=== PATIENT | female | born 1995 | race African-American/Black ===

== ENCOUNTER 2017-12-01 09:09 | Emergency (ER) | payer MEDICAID ==
[~2017-12-01] VITALS: Ht 180.3 cm; Wt 73.0 kg
[2017-12-01 09:56] LABS: CLARITY URINE CLEAR (CLEAR); COLOR URINE YELLOW (YELLOW); KETONES URINE NEGATIVE (NEGATIVE); LEUKOCYTE ESTERASE URINE NEGATIVE (NEGATIVE); NITRITE URINE NEGATIVE (NEGATIVE); OCCULT BLOOD URINE NEGATIVE (NEGATIVE); PH URINE >=9.0 (4.5-8.0); PROTEIN URINE NEGATIVE (NEGATIVE); SPECIFIC GRAVITY URINE 1.008 (1.005-1.030); UROBILINOGEN URINE 0.2 E.U./dL (0.2-1.0)
[2017-12-01] MEDS ORDERED: SODIUM CHLORIDE 0.9% 1,000 ML IV ONE (10:05)
[2017-12-01 10:12] LABS: BASOPHILS % 0.4 % (0.0-2.0); EOSINOPHILS % 2.3 % (0.0-5.0); HEMATOCRIT. 30.1 % (36.0-48.0); LYMPHOCYTES % 23.6 % (20.0-50.0); MEAN CORPUSCULAR HEMOGLOBIN 29.4 pg (28.0-32.0); MEAN CORPUSCULAR VOLUME 88.2 fL (81.0-99.0); MEAN PLATELET VOLUME 8.5 fl (7.4-10.4); MONOCYTES % 5.5 % (2.0-8.0); NEUTROPHILS % 68.2 % (40.0-76.0); PLATELET 199 x1000/uL (130-400); RED BLOOD CELL COUNT 3.41 mill/uL (4.2-5.4)
[2017-12-01 10:35] LABS: CARBON DIOXIDE 25 mEq/L (21-32)
[2017-12-01] MEDS ORDERED: ACETAMINOPHEN 325MG TABLET PO ONE (11:15)
[2017-12-01 11:36] LABS: PARTIAL THROMBOPLASTIN TIME 27.3 sec (23.4-31.0)
[2017-12-01 11:46] LABS: B-HCG QUANTITATIVE 2453 mIU/mL (<3)
[2017-12-01 11:50] LABS: CHLORIDE 108 mEq/L (98-107)
[2017-12-01 11:55] LABS: *AMPHETAMINES SCREEN URINE NEGATIVE (NEGATIVE); *BARBITURATES SCREEN URINE NEGATIVE (NEGATIVE); *BENZODIAZEPINES SCREEN URINE NEGATIVE (NEGATIVE); *COCAINE SCREEN URINE NEGATIVE (NEGATIVE); CANNABINOID URINE SCREEN NEGATIVE (NEGATIVE); METHADONE URINE SCREEN NEGATIVE (NEGATIVE); OPIATES URINE SCREEN NEGATIVE (NEGATIVE); PHENCYCLIDINE URINE SCREEN NEGATIVE (NEGATIVE)
[2017-12-01 14:28] VITALS: BP 111/59
== END 2017-12-01 14:34 | disposition home or self-care (01) ==
LOC: ER 09:22 → EDBD 09:22 → ER 14:34
DX: O26.612 Liver and biliary tract disorders in pregnancy, second trimester (principal); O99.512 Diseases of the respiratory system complicating pregnancy, second trimester; J45.909 Unspecified asthma, uncomplicated; K80.50 Calculus of bile duct without cholangitis or cholecystitis without obstruction; Z3A.19 19 weeks gestation of pregnancy
CPT/HCPCS: 36415; 76705; 76805; 80053; 80305; 81003; 81025; 83690; 84702; 85025; 85610; 85730; 86850; 86900; 87086; 96360; 96361; 99285; J7030

== ENCOUNTER 2018-01-05 09:26 | Observation (INO) | payer MEDICAID ==
[~2018-01-05] VITALS: Ht 177.8 cm; Wt 76.7 kg
[2018-01-05] MEDS ORDERED: PNV1TABL76 PO (09:45)
[2018-01-05] MEDS ORDERED: FERR325T6 PO (09:46)
[2018-01-05] MEDS ORDERED: LACTATED RINGERS 1,000 ML IV SCH (10:00)
[2018-01-05 10:35] LABS: CLARITY URINE CLEAR (CLEAR); COLOR URINE YELLOW (YELLOW); KETONES URINE NEGATIVE (NEGATIVE); LEUKOCYTE ESTERASE URINE 3+ (NEGATIVE); NITRITE URINE NEGATIVE (NEGATIVE); OCCULT BLOOD URINE NEGATIVE (NEGATIVE); PH URINE 6.5 (4.5-8.0); PROTEIN URINE NEGATIVE (NEGATIVE); SPECIFIC GRAVITY URINE 1.016 (1.005-1.030); UROBILINOGEN URINE 0.2 E.U./dL (0.2-1.0)
[2018-01-05 10:36] LABS: BASOPHILS % 0.3 % (0.0-2.0); EOSINOPHILS % 2.7 % (0.0-5.0); LYMPHOCYTES % 19.1 % (20.0-50.0); MEAN CORPUSCULAR HEMOGLOBIN 30.7 pg (28.0-32.0); MEAN CORPUSCULAR VOLUME 88.9 fL (81.0-99.0); MEAN PLATELET VOLUME 8.9 fl (7.4-10.4); MONOCYTES % 6.3 % (2.0-8.0); NEUTROPHILS % 71.6 % (40.0-76.0); PLATELET 186 x1000/uL (130-400); RED BLOOD CELL COUNT 3.26 mill/uL (4.2-5.4); RED CELL DISTRIBUTION WIDTH 13.6 % (11.6-14.6)
[2018-01-05] MEDS ORDERED: CEFAZOLIN 2,000 MG in DEXT 5% WATER 100 ML IV NR (12:00)
== END 2018-01-05 12:35 | disposition home or self-care (01) ==
LOC: L&D 09:26
PROVIDERS: ADMIT Obstetrics & Gynecology; ATTEND Obstetrics & Gynecology
DX: O26.892 Other specified pregnancy related conditions, second trimester (principal); R10.9 Unspecified abdominal pain; M79.1 Myalgia; O21.2 Late vomiting of pregnancy; Z3A.24 24 weeks gestation of pregnancy
CPT/HCPCS: 36415; 76805; 76857; 81003; 85025; 96361; 96365; 99281; G0378; J0690; J7120; 96360; J7060

== ENCOUNTER 2018-02-23 18:18 | Emergency (ER) | payer MEDICAID ==
[~2018-02-23] VITALS: Ht 180.3 cm; Wt 90.0 kg
[~2018-02-23 18:18] MED LIST: FERR325T6 PO; PNV1TABL76 PO
[2018-02-23] MEDS ORDERED: SODIUM CHLORIDE 0.9% 1,000 ML IV ONE (21:30)
[2018-02-23] MEDS ORDERED: HYDROCODONE/ACETAMINOPHEN 5/325MG TABLET PO ONE (21:30)
[2018-02-23 22:50] VITALS: BP 120/69
== END 2018-02-23 22:50 | disposition home or self-care (01) ==
LOC: ER 18:34
DX: O99.513 Diseases of the respiratory system complicating pregnancy, third trimester (principal); J45.909 Unspecified asthma, uncomplicated; O99.013 Anemia complicating pregnancy, third trimester; D57.1 Sickle-cell disease without crisis; O26.893 Other specified pregnancy related conditions, third trimester; R00.2 Palpitations; R07.9 Chest pain, unspecified; R06.02 Shortness of breath; Z3A.31 31 weeks gestation of pregnancy
CPT/HCPCS: 81025; 99284; J7030; Z7610

== ENCOUNTER 2018-03-06 21:14 | Observation (INO) | payer MEDICAID ==
[~2018-03-06] VITALS: Ht 180.3 cm; Wt 93.0 kg
[2018-03-06] MEDS ORDERED: LACTATED RINGERS 1,000 ML IV SCH (22:30)
[2018-03-06] MEDS ORDERED: CEFAZOLIN SODIUM 1000MG/VIAL IV ONE (22:30)
[2018-03-06 22:46] LABS: CLARITY URINE CLEAR (CLEAR); COLOR URINE YELLOW (YELLOW); KETONES URINE NEGATIVE (NEGATIVE); LEUKOCYTE ESTERASE URINE 2+ (NEGATIVE); NITRITE URINE NEGATIVE (NEGATIVE); OCCULT BLOOD URINE NEGATIVE (NEGATIVE); PH URINE 6.5 (4.5-8.0); PROTEIN URINE NEGATIVE (NEGATIVE); SPECIFIC GRAVITY URINE 1.012 (1.005-1.030); UROBILINOGEN URINE 0.2 E.U./dL (0.2-1.0)
[2018-03-06] MEDS ORDERED: CEFAZOLIN 2000MG in DEXTROSE 5% WATER 100ML IV NR (23:00)
[2018-03-06] MEDS ORDERED: ACETAMINOPHEN 500MG TABLET PO NR (23:45)
[2018-03-07] MEDS ORDERED: FERR325T6 PO (00:03)
[2018-03-07] MEDS ORDERED: PNV1TABL76 MT (00:03)
== END 2018-03-07 00:25 | disposition home or self-care (01) ==
LOC: L&D 21:14
PROVIDERS: ADMIT Obstetrics & Gynecology; ATTEND Obstetrics & Gynecology
DX: O26.893 Other specified pregnancy related conditions, third trimester (principal); R10.9 Unspecified abdominal pain; Z3A.32 32 weeks gestation of pregnancy
CPT/HCPCS: 81003; 96365; 99281; G0378; J0690; J7120; 96360; J7060

== ENCOUNTER 2018-03-15 16:04 | Observation (INO) | payer MEDICAID ==
[~2018-03-15] VITALS: Ht 177.8 cm; Wt 95.3 kg
[2018-03-15 17:26] LABS: CLARITY URINE CLOUDY (CLEAR); COLOR URINE YELLOW (YELLOW); KETONES URINE NEGATIVE (NEGATIVE); LEUKOCYTE ESTERASE URINE 3+ (NEGATIVE); NITRITE URINE NEGATIVE (NEGATIVE); OCCULT BLOOD URINE 2+ (NEGATIVE); PH URINE 7.5 (4.5-8.0); PROTEIN URINE NEGATIVE (NEGATIVE); SPECIFIC GRAVITY URINE 1.014 (1.005-1.030); UROBILINOGEN URINE 0.2 E.U./dL (0.2-1.0)
[2018-03-15] MEDS ORDERED: CEFAZOLIN 2,000 MG in DEXT 5% WATER 100 ML IV NR (18:30)
[2018-03-15] MEDS: BETAMETHASONE ACET/BETAMET 30 MG/5 ML VIAL IM SCH (18:53)
[2018-03-15] MEDS: LACTATED RINGERS 1,000 ML IV SCH ×2 (18:53→22:24)
[2018-03-16] MEDS: LACTATED RINGERS 1,000 ML IV SCH ×3 (06:15→21:25)
[2018-03-16] MEDS: AMPICILLIN 1,000 MG in SODIUM CHLORIDE 0.9% 50 ML IV SCH ×3 (11:03→22:18)
[2018-03-16] MEDS: BETAMETHASONE ACET/BETAMET 30 MG/5 ML VIAL IM SCH (18:52)
[2018-03-16] MEDS ORDERED: ACETAMINOPHEN 500MG TABLET PO NR (20:45)
[2018-03-17] MEDS: AMPICILLIN 1,000 MG in SODIUM CHLORIDE 0.9% 50 ML IV SCH (05:44)
== END 2018-03-17 09:45 | disposition home or self-care (01) ==
LOC: L&D 16:04
PROVIDERS: ADMIT Obstetrics & Gynecology; ATTEND Obstetrics & Gynecology
DX: O26.853 Spotting complicating pregnancy, third trimester (principal); O26.893 Other specified pregnancy related conditions, third trimester; R51 Headache; Z3A.34 34 weeks gestation of pregnancy
CPT/HCPCS: 81003; 82731; 96361; 96365; 96366; 96367; 96372; 96375; 96376; 99281; G0378; J0290; J0690; J0702; J7120; 96360; J7060

== ENCOUNTER 2018-03-30 22:48 | Observation (INO) | payer MEDICAID ==
[~2018-03-30] VITALS: Ht 177.8 cm; Wt 97.5 kg
== END 2018-03-31 07:00 | disposition home or self-care (01) ==
LOC: L&D 22:48
PROVIDERS: ADMIT Obstetrics & Gynecology; ATTEND Obstetrics & Gynecology
DX: O62.9 Abnormality of forces of labor, unspecified (principal); O26.893 Other specified pregnancy related conditions, third trimester; R10.9 Unspecified abdominal pain; Z3A.36 36 weeks gestation of pregnancy
CPT/HCPCS: 99281; G0378

== ENCOUNTER 2018-04-12 05:53 | Observation (INO) | payer MEDICAID ==
[~2018-04-12] VITALS: Ht 180.3 cm; Wt 97.5 kg
[2018-04-12] MEDS ORDERED: LACTATED RINGERS 1,000 ML IV SCH (06:45)
== END 2018-04-12 08:30 | disposition home or self-care (01) ==
LOC: L&D 05:53
PROVIDERS: ADMIT Obstetrics & Gynecology; ATTEND Obstetrics & Gynecology
DX: O62.9 Abnormality of forces of labor, unspecified (principal); Z3A.38 38 weeks gestation of pregnancy
CPT/HCPCS: 96360; 96361; 99281; G0378; J7120

== ENCOUNTER 2018-08-16 17:39 | Emergency (ER) | payer MEDICAID ==
[~2018-08-16] VITALS: Ht 167.6 cm; Wt 87.0 kg
[2018-08-16] MEDS ORDERED: HYDROCODONE/ACETAMINOPHEN 5/325MG TABLET PO ONE (21:15)
[2018-08-16 21:37] VITALS: BP 121/85
[2018-08-16] MEDS ORDERED: BACITRACIN ZINC OINT UDPKT TOP ONE (23:00)
== END 2018-08-17 00:02 | disposition home or self-care (01) ==
LOC: ER 17:56
DX: M79.672 Pain in left foot (principal); J45.909 Unspecified asthma, uncomplicated
CPT/HCPCS: 73630; 99284; Z7610

== ENCOUNTER 2025-08-25 12:47 | Emergency (ER) | payer MEDICAID, OTHER ==
[~2025-08-25] VITALS: Ht 172.7 cm; Wt 118.0 kg
[2025-08-25 12:48] VITALS: O2SAT 97
[2025-08-25] MEDS: IBUPROFEN 600MG TABLET PO ONE (13:34)
[2025-08-25] MEDS ORDERED: IBUP-1455 MT (14:05)
[2025-08-25 14:50] VITALS: BP 119/79; PULSE 94; RESP 16; TEMP 36.9; O2SAT 100
== END 2025-08-25 14:51 | disposition home or self-care (01) ==
LOC: ER 13:00
DX: S93.401A Sprain of unspecified ligament of right ankle, initial encounter (principal); J45.909 Unspecified asthma, uncomplicated; D57.1 Sickle-cell disease without crisis; X50.1XXA Overexertion from prolonged static or awkward postures, initial encounter; Y93.89 Activity, other specified; Y92.89 Other specified places as the place of occurrence of the external cause; Y99.8 Other external cause status
CPT/HCPCS: 99284; 73610; 73630; A6449